=== PATIENT | male | born 1960 | race African-American/Black ===

== ENCOUNTER 2017-01-24 21:00 | Inpatient (IN) | payer OTHER ==
[~2017-01-24] VITALS: Ht 179.1 cm; Wt 99.3 kg
--- NOTE | ~2017-01-24 | HP ---
Unit #: [id number] #: [id number] Patient: JAVIER LANGLEY [id number] [place] [address] [id number] MR#: [id number] NAME: JAVIER LANGELY. ROOM: P202 Age: 56 Sex: M Admission Date: 01/24/2017 : 1960 Attending Physician: West Arboleda M.D. Admitting Physician: West Arboleda M.D. Primary Care Physician: Tez Flores Family HISTORY AND PHYSICAL REASON FOR ADMISSION Acute psychiatric inpatient admission. HISTORY OF PRESENT ILLNESS/HOSPITAL COURSE Increased alcohol abuse, increased anxiety at home IV drug use. The patient seeks help for in regard to the same. PAST MEDICAL HISTORY Substance abuse, insomnia. SOCIAL HISTORY Positive marijuana, crack cocaine, LSD, opioids, tobacco, alcohol. PAST SURGICAL HISTORY As per chart review. HOME MEDICATIONS Elavil and perphenazine. ALLERGIES No known drug allergies. FAMILY HISTORY Mental health substance abuse. REVIEW OF SYSTEMS Please see HPI. Twelve point otherwise negative except for those positive noted in the HPI. PHYSICAL EXAMINATION GENERAL: Awake, alert, oriented to person, place, and time. Well built, well nourished. Does not appear to be in any acute distress. VITAL SIGNS: Temperature 98.7, blood pressure 130/90, respiratory rate 16, pulse 94. HEAD: Atraumatic. Normocephalic. EYES: Bilateral extraocular muscles are normal. Pupils equal, reactive to light and accommodation. Sclerae are normal. No jaundice. NECK: Neck is supple. No neck rigidity. No thyromegaly. No carotid bruit. No JVD. Oral mucosa is moist. CHEST: Bilateral vesicular breathing. Clear to auscultation. No basilar rales. CARDIOVASCULAR: S1 and S2 normal. No murmur, no gallop, no rub. ABDOMEN: Soft, nontender. No organomegaly. Bowel sounds are normal. No Unit #: [id number] #: [id number] Patient: JAVIER LANGLEY hernia, no masses, no rebound, no guarding. EXTREMITIES: No pitting edema. No calf tenderness. Extremity pulses, including dorsalis pedis, have good volume. BACK: Normal spine curvature. No spine tenderness. No costovertebral angle tenderness. COMPUTER SYSTEMS SECURITY ADMINISTRATOR: Cranial nerves normal bilaterally. Motor function bilaterally symmetric and normal. Sensory system normal. SKIN: Warm and dry. INITIAL IMPRESSION 1. Acute psychiatric inpatient admission. 2. Substance abuse. 3. Alcohol dependence. PLAN As per psychiatrist, medical condition is stable, medical prognosis fair. There are no medical contraindications to patient participating in activities while here at [facility]. Dictated by... Zoraida Crenshaw M.D. LISSA/tono TD: 01/25/2017 16:24 JOB #: [id number] HISTORY AND PHYSICAL Page 1 of 1 X Zoraida Crenshaw MD X HISTORY AND PHYSICAL
--- NOTE | ~2017-01-24 | PA ---
Unit #: [id number] #: [id number] Patient: JAVIER LANGLEY [id number] [place] [address] [id number] I MR#: [id number] NAME: JAVIER LANGLEY ROOM: P202 Age: 56 Sex: M Admission Date: 01/24/2017 : 1960 Date of Assessment: 01/25/2017 Attending Physician: West Arboleda M.D. Admitting Physician: West Arboleda M.D. [facility] PSYCHIATRIC ASSESSMENT IDENTIFYING INFORMATION The patient is a 56-year-old male admitted to the [address] [place] [address] with command hallucinations and racing thoughts. CHIEF COMPLAINT None given. INFORMANT The patient, reliability is good. HISTORY OF PRESENT ILLNESS The patient is a 56-year-old male last discharged from this facility in 2014. The patient states that he is living in a custodial house and has remained abstinence from substances though he does have a history of cocaine and alcohol abuse. The patient reports that he is prescribed Elavil and amitriptyline through the auspices of [facility]. He states that he has been compliant with these medications. The patient reports ongoing suicidal ideation, racing thoughts when seen today but appears calm and cooperative during interview. For more complete history of present illness please refer to previous dictated notes. PAST PSYCHIATRIC HISTORY Reviewed no changes. MEDICATIONS At the time the patient was last discharged from this facility his medications included Amitriptyline, perphenazine and Flomax. ALLERGIES None reported. FAMILY HISTORY Noncontributory. SOCIAL HISTORY The patient is residing in a custodial house. He is a smoker and has a history of cocaine and alcohol abuse. He is disabled. (1) psychiatric illness. MENTAL STATUS EXAMINATION At this time reveals the patient to be a well-developed, well-nourished male, appearing his stated age. He is in no apparent physical distress at the time of examination. He is awake, alert, and Unit #: [id number] #: [id number] Patient: JAVIER LANGLEY oriented in all spheres. His mood is euthymic. His affect congruent. Speech is generally relevant and coherent. There are no gross deficits in memory or cognition noted. Intelligence is judged to be in the average range based on fund of knowledge. The patient is cooperative throughout the interview. He is currently denying suicidal or homicidal ideation or psychotic symptoms. Judgment and insight appear to be intact. The patient's assets motivation for change. Liabilities lack of resources. DIAGNOSTIC IMPRESSION 1. Chronic paranoid schizophrenia. 2. Alcohol use disorder by history. 3. Cocaine use disorder by history. 4. Benign prostatic hypertrophy. TREATMENT PLAN The patient remains hospitalized for safety and stabilization. A routine detoxification for alcohol has been initiated and we will restart the patient's previously prescribed medications at this point. We will restart previously prescribed doses prior to clarification with [facility] upper titration will likely be necessary particularly perphenazine given the patient's complaints of ongoing psychotic symptoms. ESTIMATED LENGTH OF STAY Undetermined. Dictated by... West Arboleda M.D. ANASTASIA/eliceo TD: 01/25/2017 20:59 JOB #: [id number] PSYCHIATRIC ASSESSMENT Page 1 of 1 X West Arboleda MD X PSYCHIATRIC ASSESSMENT
--- NOTE | ~2017-01-24 | PN ---
Unit #: [id number] #: [id number] Patient: JAVIER LANGLEY [id number] [facility] [address] [place] [address] [id number] I MR#: [id number] NAME: JAVIER LANGLEY ROOM: P202 Age: 56 Sex: M Admission Date: 01/24/2017 : 1960 Attending Physician: West Arboleda M.D. Admitting Physician: West Arboleda M.D. Primary Care Physician: -[facility] PROGRESS NOTES DATE 01/27/2017 DISCUSSION The patient remains seclusive to room. He accepts little in the way of signs or symptoms of withdrawal but continues to endorse positive auditory hallucinations and some suicidal thinking. I have requested that the patient try to increase his participation in the therapeutic milieu. He is compliant with medications and estrada routine. Dictated by... West Arboleda M.D. CB/misty TD: 01/27/2017 13:53 JOB #: [id number] [facility] PROGRESS NOTES Page 1 of 1 X West Arboleda MD X PROGRESS NOTE
--- NOTE | ~2017-01-24 | DS ---
Unit #: [id number] #: [id number] Patient: JAVIER LANGLEY [id number] [place] [address] [id number] I MR#: [id number] NAME: JAVIER LANGLEY. ROOM: [facility] Age: 56 Sex: M Admission Date: 01/24/2017 : 1960 Discharge Date: 01/28/2017 Attending Physician: West Arboleda M.D. Primary Care Physician: [facility] Family DISCHARGE SUMMARY REASON FOR ADMISSION The patient is a 56-year-old male with a history of alcohol dependence and chronic paranoid schizophrenia admitted after a period of medication noncompliance. HOSPITAL COURSE The patient was admitted to the [address] [place] [address] unit and placed on routine detoxification protocol for alcohol. He was continued on previously prescribed medications including Elavil and Trilafon. The patient's stay in the hospital was a brief and uneventful one. He participated actively within the therapeutic milieu and by 01/28/2017, was in bright spirits requesting discharge. He appeared to be at or near his psychiatric baseline and exhibited no signs or symptoms of withdrawal. Discharge was ordered. FINAL DIAGNOSES Chronic paranoid schizophrenia; alcohol use disorder; cocaine use disorder; benign prostatic hypertrophy. DISPOSITION ON DISCHARGE The patient is discharged on the following medications; Elavil 100 mg at bedtime for insomnia and depression, Trilafon 4 mg q.a.m. and 8 mg at bedtime for psychosis. DISCHARGE INSTRUCTIONS No dietary or physical restrictions were placed upon the patient at the time of discharge. FOLLOWUP Followup will take place through the auspices of community mental health resources. PROGNOSIS His prognosis is considered fair. Dictated by... West Arboleda M.D. CB/tono TD: 01/28/2017 14:39 JOB #: [id number] Unit #: [id number] #: [id number] Patient: JAVIER LANGLEY DISCHARGE SUMMARY Page 1 of 1 X West Arboleda MD X DISCHARGE SUMMARY
--- NOTE | ~2017-01-24 | PN ---
Unit #: [id number] #: [id number] Patient: JAVIER LANGLEY [id number] [facility] [address] [place] [address] [id number] I MR#: [id number] NAME: JAVIER LANGLEY ROOM: P202 Age: 56 Sex: M Admission Date: 01/24/2017 : 1960 Attending Physician: West Arboleda M.D. Admitting Physician: West Arboleda M.D. Primary Care Physician: -[facility] PROGRESS NOTES DATE 01/26/2017 DISCUSSION The patient request reinitiation of his a.m. dose of perphenazine and we will so order it at a dose of 4 mg q.a.m. Otherwise, he exhibits little in the way of signs or symptoms of withdrawal and is generally pleasant but continues to endorse depressed mood and some auditory hallucinations as well as suicidal thinking. Dictated by... West Arboleda M.D. CB/eliceo TD: 01/26/2017 21:17 JOB #: [id number] [facility] PROGRESS NOTES Page 1 of 1 X West Arboleda MD X PROGRESS NOTE
[2017-01-26 09:37] LABS: BASOPHIL% 0.3 % (0-2.5); EOSINOPHIL# 0.1 X10e3 (0-0.7); EOSINOPHIL% 1.1 % (0.0-7.0); HEMATOCRIT 48.3 % (38.0-50.0); HEMOGLOBIN 15.7 gm/dL (13.0-16.0); LYMPHOCYTE# 5.6 X10e3 (1.0-3.5); LYMPHOCYTE% 42.7 % (17.0-45.0); MEAN CORPUSCULAR HEMOGLOBIN 25.4 PG (28-34); MEAN CORPUSCULAR HGB CONC 32.6 g/dL (30-36); MEAN PLATELET VOLUME 8.7 FL (6.5-11.5); MONOCYTE# 0.6 X10e3 (0-1.0); MONOCYTE% 4.9 % (3.0-12.0); NEUTROPHIL# 6.7 X10e3 (1.5-7.1); PLATELET COUNT 259 X10e3 (140-420); RED BLOOD COUNT 6.19 X10e (3.90-5.60); RED CELL DISTRIBUTION WIDTH 14.2 % (11.0-15.5); WHITE BLOOD COUNT 13.1 X10e3 (4.0-10.5)
[2017-01-26 09:44] LABS: DIFF IND NO
[2017-01-26 10:05] LABS: THYROID STIMULATING HORMONE 0.57 uIU/ml (0.34-5.60)
[2017-01-26 10:12] LABS: FREE THYROXIN (T4) 0.84 ng/dL (0.58-1.64)
[2017-01-26 10:29] LABS: ALBUMIN SERUM 3.7 g/dL (3.5-5.0); BILIRUBIN,TOTAL 0.6 mg/dL (0.2-2.0); BUN/CREATININE RATIO 13.33; CALCIUM SERUM 9.1 mg/dL (8.4-10.2); CREATININE SERUM 0.9 mg/dL (0.6-1.4); GLOM FILT RATE Estimated 110.3 mL/min (>60); POTASSIUM 4.5 mmol/L (3.5-5.1); PROTEIN TOTAL SERUM 7.2 g/dL (6.0-8.3)
== END 2017-01-28 13:45 | disposition home or self-care (01) | DRG 885 ==
LOC: P2S 23:54
PROVIDERS: Psychiatry & Neurology Psychiatry
PROC: HZ2ZZZZ Detoxification Services for Substance Abuse Treatment (ICD-10-PCS; principal; 2017-01-25)
DX: F20.0 Paranoid schizophrenia (principal); F14.10 Cocaine abuse, uncomplicated; F10.10 Alcohol abuse, uncomplicated; N40.0 Benign prostatic hyperplasia without lower urinary tract symptoms
CPT/HCPCS: 80053; 84439; 84443; 85025

== ENCOUNTER 2017-02-07 16:00 | Inpatient (IN) | payer OTHER ==
[~2017-02-07] VITALS: Ht 177.8 cm; Wt 99.8 kg
--- NOTE | ~2017-02-07 | PN ---
Unit #: [id number] #: [id number] Patient: JAVIER LANGLEY [id number] [facility] [address] [place] [address] [id number] I MR#: [id number] NAME: JAVIER LANGLEY ROOM: P181 Age: 56 Sex: M Admission Date: 02/07/2017 : 1960 Attending Physician: West Arboleda M.D. Admitting Physician: Jenna Pozo PROGRESS NOTES DATE 02/09/2017 DISCUSSION The patient is in bed today. He awakens without difficulty. The patient reports that he did not fill his prescription for Elavil and Trilafon because "I had some back at the [facility]." He now states that he has left that facility and is uncertain where he will go when he leaves the hospital. He is continuing to report positive auditory hallucinations. Dictated by... West Arboleda M.D. CB/cherelle TD: 02/09/2017 14:41 JOB #: [id number] [facility] PROGRESS NOTES Page 1 of 1 X West Arboleda MD X PROGRESS NOTE
--- NOTE | ~2017-02-07 | PA ---
Unit #: [id number] #: [id number] Patient: JAVIER LANGLEY [id number] [place] [address] [id number] MR#: [id number] NAME: JAVIER LANGLEY. ROOM: P181 Age: 56 Sex: M Admission Date: 02/07/2017 : 1960 Date of Assessment: 02/08/2017 Attending Physician: West Arboleda M.D. Admitting Physician: West Arboleda M.D. Primary Care Physician: Te[facility] PSYCHIATRIC ASSESSMENT IDENTIFYING INFORMATION The patient is a 56-year-old white male just discharged from this facility on 01/28/2017. He is admitted with recurrent abuse of heroin and suicidal ideation. INFORMANT(S) Chart, patient could not be aroused for interview. CHIEF COMPLAINT None given. HISTORY OF PRESENT ILLNESS The patient is a 56-year-old male last discharged from this facility on 01/28/2017. He did not fill prescription provided at that time as evidenced by the fact that they were found on his person at the time of discharge. The patient's current medications include Trilafon 4 mg q.a.m. and 8 mg at h.s. and Elavil 100 mg at h.s. The patient had presented to [facility] reporting recurrent abuse of heroin and suicidal ideation as well as auditory hallucinations of a command type. For more complete history of present illness please refer to previously dictated notes. PAST PSYCHIATRIC HISTORY Reviewed no changes. PAST MEDICAL HISTORY Reviewed no changes. MEDICATIONS Elavil, Trilafon. ALLERGIES None. FAMILY HISTORY Reviewed no changes. SOCIAL HISTORY Reviewed no changes. MENTAL STATUS EXAMINATION At this time reveals the patient to be a soundly sleeping male, appearing his stated age. Multiple attempts to arouse the patient Unit #: [id number] #: [id number] Patient: JAVIER LANGLEY are unsuccessful as he is snoring loudly. ASSETS AND LIABILITIES ASSETS: To be assessed. LIABILITIES: Poor compliance of treatment. Ongoing substance use. DIAGNOSTIC IMPRESSION Opioid use disorder, psychotic use disorder unspecified. TREATMENT PLAN The patient remains hospitalized for safety and stabilization. A routine detoxification protocol for opioids has been initiated and the patient's recently prescribed medications will be restarted. The patient will participate in appropriate estrada and milieu activities. ESTIMATED LENGTH OF STAY Three to five days. Dictated by... West Arboleda M.D. CB/eliceo TD: 02/08/2017 22:19 JOB #: [id number] PSYCHIATRIC ASSESSMENT Page 1 of 1 X West Arboleda MD X PSYCHIATRIC ASSESSMENT
--- NOTE | ~2017-02-07 | HP ---
Unit #: [id number] #: [id number] Patient: JAVIER LANGLEY [id number] [place] [address] [id number] I MR#: [id number] NAME: JAVIER LANGLEY ROOM: P181 Age: 56 Sex: M Admission Date: 02/07/2017 : 1960 Attending Physician: West Arboleda M.D. Admitting Physician: West Arboleda M.D. Primary Care Physician: Tez Flores Family HISTORY AND PHYSICAL The patient is a 56-year-old male admitted to [facility] on 02/07/2017 to detox from heroin. The patient had a recent admission on January 25, 2017 where a full history and physical was completed. That history and physical has been reviewed and no changes need to be made. Dictated by... Yaneli Olguin/eliceo TD: 02/08/2017 23:36 JOB #: [id number] HISTORY AND PHYSICAL Page 1 of 1 X DARI RAO APRN HISTORY AND PHYSICAL
--- NOTE | ~2017-02-07 | DS ---
Unit #: [id number] #: [id number] Patient: JAVIER LANGLEY [id number] [place] [address] [id number] MR#: [id number] NAME: JAVIER LANGLEY. ROOM: 81 Age: 56 Sex: M Admission Date: 02/07/2017 : 1960 Discharge Date: 02/10/2017 Attending Physician: West Arboleda M.D. Primary Care Physician: [facility] Family DISCHARGE SUMMARY REASON FOR ADMISSION The patient is a 56-year-old, -[place] male admitted with recurrent abuse of heroin and depressed mood. HOSPITAL COURSE Patient was admitted to the [facility] unit and placed on suicide precautions. He was restarted on previously prescribed medications including Elavil and Trilafon. His detox was an uneventful one. By 02/10, the patient requested discharge and it was so ordered. FINAL DIAGNOSES 1. Opioid used disorder. 2. Chronic paranoid schizophrenia. DISPOSITION On discharge, patient is discharged on the following medications: 1. Elavil 100 mg at bedtime for depression. 2. Trilafon 4 mg twice daily for psychosis. DIET AND ACTIVITY No dietary or physical restrictions placed on patient at time of discharge. FOLLOWUP Followup will take place through the auspices of community mental health resources. PROGNOSIS The patient's prognosis is considered fair. Dictated by... West Arboleda M.D. ANASTASIA/leon TD: 02/11/2017 11:17 JOB #: [id number] Unit #: [id number] #: [id number] Patient: JAVIER LANGLEY DISCHARGE SUMMARY Page 1 of 1 X West Arboleda MD X DISCHARGE SUMMARY
== END 2017-02-10 14:35 | disposition home or self-care (01) | DRG 897 ==
LOC: P1E 20:25
PROC: HZ2ZZZZ Detoxification Services for Substance Abuse Treatment (ICD-10-PCS; principal; 2017-02-07)
DX: F11.159 Opioid abuse with opioid-induced psychotic disorder, unspecified (principal)